=== PATIENT | male | born 2000 | race Caucasian/White ===

== ENCOUNTER 2022-10-05 00:55 | Emergency (ER) | payer OTHER ==
[~2022-10-05] VITALS: Ht 167.6 cm; Wt 86.2 kg
--- NOTE | 2022-10-05 01:13 | NUR ---
PT TAKEN TO BED 3
[2022-10-05 01:20] VITALS: BP 139/77; PULSE 81; RESP 15; TEMP 97.8; O2SAT 99
--- NOTE | 2022-10-05 01:20 | NUR ---
COVERING PRIMARY RN FOR LUNCH RELIEF. SEE COMPLETE ASSESSMENT.
--- NOTE | 2022-10-05 01:59 | NUR ---
Nury DOLAN assume care over patient.
[2022-10-05] MEDS ORDERED: IBUP-2213 PO (02:44)
[2022-10-05] MEDS ORDERED: IBUPROFEN 600 MG TAB PO ONE (02:45)
--- NOTE | 2022-10-05 03:09 | NUR ---
PAIN MEDS ADMINISTERED AND D/C IMMEDIATELY
--- NOTE | 2022-10-05 03:09 | NUR ---
Patient discharged with v/s stable. Written and verbal after care instructions given and explained. Patient alert, oriented and verbalized understanding of instructions. Ambulatory with steady gait. All questions addressed prior to discharge. ID band removed. Patient advised to follow up with PMD. Rx of MOTRIN given. Opportunity to ask questions provided and answered. PT AMBULATED WITH CRUTCHES.
== END 2022-10-05 03:09 | disposition home or self-care (01) ==
LOC: MED 00:55
DX: S93.492A Sprain of other ligament of left ankle, initial encounter (principal); X50.1XXA Overexertion from prolonged static or awkward postures, initial encounter; Y93.89 Activity, other specified; Y92.89 Other specified places as the place of occurrence of the external cause; Y99.8 Other external cause status
CPT/HCPCS: 73610; 73630; 99284; Q0092